=== PATIENT | female | born 1980 | race Caucasian/White ===

== ENCOUNTER 2020-07-23 12:29 | Outpatient (REF) | payer OTHER, SELFPAY ==
[2020-07-23 13:26] LABS: HCT 30.9 % (36.0-46.0); MCH 20.7 pg (27.0-33.0); MCHC 29.1 % (32.0-36.0); MPV 8.7 fL (8.0-11.0); Platelet Count 483 10^3/uL (130-400); RBC 4.35 10^6/uL (3.93-5.22); RDW 16.9 % (11.7-14.6); RDW-SD 42.8 fL
[2020-07-23 13:51] LABS: BUN 9 mg/dL (7-18); CREATININE 0.8 mg/dL (0.55-1.02); Calcium 8.8 mg/dL (8.5-10.1); Chloride 106 mmol/L (98-107); Ferritin 3 ng/mL (8-252); Glucose 85 mg/dL (74-106); Potassium 4.7 mmol/L (3.5-5.1); Sodium 142 mmol/L (136-145); TSH (W/Ref FT4) 1.11 uIU/mL (0.36-3.74)
== END 2020-07-23 12:30 | disposition home or self-care (01) ==
LOC: NCHCN 12:29
PROVIDERS: PCP Family Medicine; Visit Provider Family Medicine
DX: D50.9 Iron deficiency anemia, unspecified (principal); F41.8 Other specified anxiety disorders; M79.7 Fibromyalgia
CPT/HCPCS: 80048; 85027; 82728; 84443

== ENCOUNTER 2020-08-16 04:28 | Outpatient (RCR) | payer OTHER, SELFPAY ==
[2020-08-05] MEDS: IRON SUCROSE COMPLEX 200 MG in Normal Saline 100 ML 440 MG IVPB (12:52)
[2020-08-05] MEDS: Normal Saline Flush 10 ML SYR IVP (12:53)
[2020-08-09] MEDS: Normal Saline Flush 10 ML SYR IVP (13:23)
[2020-08-09] MEDS: IRON SUCROSE COMPLEX 200 MG in Normal Saline 100 ML 440 MG IVPB (13:23)
[2020-08-12] MEDS: Normal Saline Flush 10 ML SYR IVP (13:05)
[2020-08-12] MEDS: IRON SUCROSE COMPLEX 200 MG in Normal Saline 100 ML 440 MG IVPB (13:05)
[2020-08-16] MEDS: Normal Saline Flush 10 ML SYR IVP (13:05)
[2020-08-16] MEDS: IRON SUCROSE COMPLEX 200 MG in Normal Saline 100 ML 440 MG IVPB (13:05)
== END 2020-08-23 23:59 | disposition home or self-care (01) ==
LOC: INF 04:28
PROVIDERS: PCP Family Medicine; Visit Provider Nurse Practitioner Acute Care
DX: D50.9 Iron deficiency anemia, unspecified (principal)
CPT/HCPCS: 96365; J1756

== ENCOUNTER 2020-08-26 15:11 | Outpatient (REF) | payer OTHER, SELFPAY ==
[2020-08-26 13:47] LABS: HCT 37.9 % (36.0-46.0); MCH 22.9 pg (27.0-33.0); MCV 78.8 fL (80-95); MPV 9.1 fL (8.0-11.0); Platelet Count 349 10^3/uL (130-400); RBC 4.81 10^6/uL (3.93-5.22); RDW 27.1 % (11.7-14.6); RDW-SD 72.4 fL; WBC 6.69 10^3/uL (4.4-10.8)
[2020-08-26 14:33] LABS: Ferritin 36 ng/mL (8-252)
== END 2020-08-26 15:12 | disposition home or self-care (01) ==
LOC: NCHCN 15:11
PROVIDERS: PCP Family Medicine; Visit Provider Family Medicine
DX: D50.9 Iron deficiency anemia, unspecified (principal)
CPT/HCPCS: 85027; 82728

== ENCOUNTER 2020-12-17 17:57 | Outpatient (REF) | payer OTHER, SELFPAY ==
[2020-12-17 20:49] LABS: HCT 35.9 % (36.0-46.0); HGB 10.7 g/dL (11.2-15.7); MCH 24.7 pg (27.0-33.0); MCHC 29.8 % (32.0-36.0); MCV 82.9 fL (80-95); MPV 9.1 fL (8.0-11.0); Platelet Count 380 10^3/uL (130-400); RBC 4.33 10^6/uL (3.93-5.22); RDW 17.1 % (11.7-14.6); RDW-SD 51.1 fL; WBC 7.79 10^3/uL (4.4-10.8)
[2020-12-17 20:55] LABS: Ferritin 5 ng/mL (8-252)
== END 2020-12-17 17:58 | disposition home or self-care (01) ==
LOC: NCHCN 17:57
PROVIDERS: PCP Family Medicine; Visit Provider Family Medicine
DX: D50.9 Iron deficiency anemia, unspecified (principal)
CPT/HCPCS: 85027; 82728

== ENCOUNTER 2021-01-13 03:19 | Outpatient (RCR) | payer OTHER, SELFPAY ==
[2021-01-01] MEDS: Normal Saline Flush 10 ML SYR IVP (11:00)
[2021-01-01] MEDS: IRON SUCROSE COMPLEX 200 MG in Normal Saline 100 ML 440 MG IVPB (11:02)
[2021-01-03] MEDS: IRON SUCROSE COMPLEX 200 MG in Normal Saline 100 ML 440 MG IVPB (09:08)
[2021-01-03] MEDS: Normal Saline Flush 10 ML SYR IVP (10:10)
[2021-01-06] MEDS: IRON SUCROSE COMPLEX 200 MG in Normal Saline 100 ML 440 MG IVPB (13:06)
[2021-01-06] MEDS: Normal Saline Flush 10 ML SYR IVP (13:35)
[2021-01-08] MEDS: Normal Saline Flush 10 ML SYR IVP (13:01)
[2021-01-08] MEDS: IRON SUCROSE COMPLEX 200 MG in Normal Saline 100 ML 440 MG IVPB (13:09)
[2021-01-13] MEDS: Normal Saline Flush 10 ML SYR IVP (09:00)
[2021-01-13] MEDS: IRON SUCROSE COMPLEX 200 MG in Normal Saline 100 ML 440 MG IVPB (09:18)
== END 2021-01-23 23:59 | disposition home or self-care (01) ==
LOC: INF 03:19
PROVIDERS: PCP Family Medicine; Visit Provider Family Medicine
DX: D50.9 Iron deficiency anemia, unspecified (principal)
CPT/HCPCS: 36591; 96365; J1756

== ENCOUNTER 2021-01-20 15:04 | Outpatient (REF) | payer OTHER, SELFPAY ==
--- NOTE | 2021-01-20 09:45 | PAPFT_PTH ---
PATIENT: Michelle Wilcox LOC: [facility] U#:[id number] AGE/SX: 40/F ROOM: RE01/20/[address]: Trevor Corley : 1980 BED: DIS: 01/20/2021 SPEC #: [id number] RECD: 01/21/21 12:50 STATUS: KATIE RESohan #: [id number] KELSI: 01/20/21 09:[address]: Trevor Corley DEPT: [facility] Cytology RECD BY: Qiana Brown Tissues: 1 - CX/ENDOCX FOR PAP SMEARS Procedures: PAP THIN PREP/UVM Screening HPV DNA PROBE Comments: [id number]
[2021-01-20 14:54] LABS: HCT 39.7 % (36.0-46.0); HGB 12.3 g/dL (11.2-15.7); MCH 26.6 pg (27.0-33.0); MCV 85.9 fL (80-95); MPV 9.2 fL (8.0-11.0); Platelet Count 345 10^3/uL (130-400); RBC 4.62 10^6/uL (3.93-5.22); RDW 23.2 % (11.7-14.6); RDW-SD 70.6 fL; WBC 5.92 10^3/uL (4.4-10.8)
[2021-01-20 15:35] LABS: Ferritin 93 ng/mL (8-252)
== END 2021-01-20 15:05 | disposition home or self-care (01) ==
LOC: NCHCN 15:04
PROVIDERS: PCP Family Medicine; Visit Provider Family Medicine
DX: D50.9 Iron deficiency anemia, unspecified (principal); Z12.4 Encounter for screening for malignant neoplasm of cervix; Z11.51 Encounter for screening for human papillomavirus (HPV); R87.613 High grade squamous intraepithelial lesion on cytologic smear of cervix (HGSIL); B97.7 Papillomavirus as the cause of diseases classified elsewhere
CPT/HCPCS: 85027; 88142; 82728; 87624

== ENCOUNTER → 2021-02-10 01:37 | Outpatient (CLI) | payer OTHER, SELFPAY ==
--- NOTE | 2021-02-10 | DI.RAD_ITS ---
Exam(s) XR CHEST 2V PA LATERAL EXAM: XR CHEST 2V PA LATERAL CLINICAL HISTORY: COUGH, R05. TECHNIQUE: 2D digital imaging was performed. COMPARISON: No exams were available for comparison FINDINGS: Heart size is normal. The mediastinum is not widened. Lungs are clear. No infiltrates nor pleural effusions. Air is seen in a small bowel loop in the left upper quadrant subjacent to the left hemidiaphragm IMPRESSION: No acute pulmonary findings. DATA REPOSITORY: RADIATION DOSE DELIVERED:
== END ==
PROVIDERS: PCP Family Medicine; Visit Provider Nurse Practitioner Family
DX: R05.8 Other specified cough (principal)
CPT/HCPCS: 71046

== ENCOUNTER 2021-02-13 14:41 | Outpatient (REF) | payer OTHER, SELFPAY ==
--- NOTE | 2021-02-13 11:40 | CER_PTH ---
PATIENT: Michelle Wilcox LOC: [facility] U#:[id number] AGE/SX: 40/F ROOM: RE02/13/[address]: Sanjuanita Das MD : 1980 BED: DIS: 02/13/2021 SPEC #: [id number] RECD: 02/13/21 17:32 STATUS: KATIE REQ #: [id number] KELSI: 02/13/21 11:[address]: Sanjuanita Das DEPT: Surgical Specimen RECD BY: Qiana Brown ENTERED: 02/13/21 17:33 SP TYPE: CER OTHR DR: Trevor Corley Tissues: 1 - CERVICAL BIOPSY Procedures: GROSS AND MICRO LEVEL 4 Comments: [id number]
== END 2021-02-13 14:42 | disposition home or self-care (01) ==
LOC: LBN 14:41
PROVIDERS: PCP Family Medicine; Visit Provider Obstetrics & Gynecology
DX: R87.613 High grade squamous intraepithelial lesion on cytologic smear of cervix (HGSIL) (principal); D06.7 Carcinoma in situ of other parts of cervix
CPT/HCPCS: 88305

== ENCOUNTER 2021-02-20 12:07 | Outpatient (REF) | payer OTHER, SELFPAY ==
--- NOTE | 2021-02-20 10:20 | CER_PTH ---
PATIENT: Michelle Wilcox LOC: [facility] U#:[id number] AGE/SX: 40/F ROOM: RE02/20/[address]: Sanjuanita Das MD : 1980 BED: DIS: 02/20/2021 SPEC #: [id number] RECD: 02/20/21 12:50 STATUS: KATIE REQ #: [id number] KELSI: 02/20/21 10:[address]: Sanjuanita Das DEPT: Surgical Specimen RECD BY: Qiana Brown ENTERED: 02/20/21 12:51 SP TYPE: CER OTHR DR: Trevor Corley Tissues: 1 - CERVICAL BIOPSY Procedures: GROSS AND MICRO LEVEL 5 Comments: [id number]
--- OUTSIDE RECORDS SUMMARY | 2021-02-20 12:11 | XMS_ITS | Continuity of Care Document ---
:1980 Author Organization [facility] Address [address] [place] [address] Care Team Providers Name Role Phone Willingham Primary Care Physician Encounter BVT Date(s): 11/15/19 - 11/15/19 [facility] [address] [place] [address] Encounter Diagnosis H/O gastric bypass (Discharge Diagnosis) - 11/15/19 Iron deficiency (Discharge Diagnosis) - 11/15/19 Discharge Disposition: Home Attending Physician: Peyton Willingham Allergies, Adverse Reactions, Alerts No Known Medication Allergies Assessment and Plan Future Scheduled TestsLaboratoryHemoglobin A1c DC 11/15/19TSH [place] 11/15/19 Vitamin B12 Level 1 11/15/19Comprehensive Metabolic Panel Standard 11/15/19Lipid Panel Standard 11/15/19CBC w/Diff Standard 11/15/19Ferritin Serum 11/15/19FEIBC 11/15/19Vitamin D, 25-Hydroxy 11/15/19Folate (Folic Acid), serum 11/15/19 Functional Status 11/15/19 COVID-19 Screening None Immunizations Given and Recorded Vaccine Date Status Refusal Reason rabies (RIG-HT) 12/06/14 Recorded rabies (RIG-HT) 11/21/14 Recorded rabies (RIG-HT) 11/14/14 Recorded Td 05/21/13 Recorded Td 09/06/98 Recorded MMR (measles/mumps/rubella) 09/13/98 Recorded Medications calcium carbonate + vitamin D 500 mg-400 units oral tablet 1 tab(s), Oral, BID, # 60 tab(s), 0 Refill(s) Start Date: 10/25/19 Status: OrderedDULoxetine 60 mg oral delayed release capsule 60 mg = 1 cap(s), Oral, Daily, (do not crush or chew), # 90 cap(s), 1 Refill(s), Pharmacy: [id number], 1 cap(s) Oral Daily,x90 day(s),Instr:(do not crush or chew) Start Date: 11/15/19 Stop Date: 05/13/20 Status: Orderedgabapentin 300 mg oral capsule 300 mg = 1 cap(s), Oral, TID, # 270 cap(s), 1 Refill(s), Pharmacy: [facility] #[id number], 1 cap(s) Oral TID,x90 day(s) Start Date: 11/15/19 Stop Date: 05/13/20 Status: OrderedMulti Vitamin+ 0 Refill(s) Start Date: 11/15/19 Status: Ordered Problem List Condition Effective Dates Status Health Status Informant Allergic rhinitis, Active unspecified(Confirmed)1 Anemia(Confirmed) Active Depression(Confirmed) Active Fibromyalgia(Confirmed) Active 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 -4[facility] of [facility] -5Dept of [employer] - [employer] Extracted Vital Signs Most recent to oldest [Reference Range]: 1 Temperature Temporal Artery [36.3-37.8 DegC] 36.7 DegC (11/15/19 3:21 PM) Peripheral Pulse Rate [60-100 bpm] 74 bpm (11/15/19 3:21 PM) Respiratory Rate [14-20 br/min] 16 br/min (11/15/19 3:21 PM) Blood Pressure [90-140/60-90 mmHg] 108/74 mmHg (11/15/19 3:21 PM) BP Site Right arm (11/15/19 3:21 PM) Pulse Site Pulse Oximetry (11/15/19 3:21 PM) SpO2 [92-100 %] 97 % (11/15/19 3:21 PM) Height 176.1 cm (11/15/19 3:21 PM) Height/Length Measured (inches) 69.3 in (11/15/19 3:21 PM) Weight 79.88 kg (11/15/19 3:21 PM) Weight Measured (lbs) 175.736 lb (11/15/19 3:21 PM) BSA Measured 1.98 m2 (11/15/19 3:21 PM) Body Mass Index 25.76 kg/m2 (11/15/19 3:21 PM) Social History Social History Type Response Smoking Status Smoker, current status unkno [email or web address] entered on: 10/24/19 Sex 1daily
--- OUTSIDE RECORDS SUMMARY | 2021-02-20 12:11 | XMS_ITS | Continuity of Care Document ---
:1980 Author Organization [facility] Address [address] [place] [address] Care Team Providers Name Role Phone Willingham Primary Care Physician Encounter BVT Date(s): 05/24/20 - 05/24/20 [facility] [address] [place] [address] Encounter Diagnosis Depression (Discharge Diagnosis) - 05/24/20 Fibromyalgia (Discharge Diagnosis) - 05/24/20 Anemia (Discharge Diagnosis) - 05/24/20 Discharge Disposition: Home Attending Physician: Peyton Willingham Allergies, Adverse Reactions, Alerts No Known Allergies Assessment and Plan Future Scheduled TestsLaboratoryHemoglobin A1c DC 11/15/19TSH [place] 11/15/19 Vitamin B12 Level 1 11/15/19Comprehensive Metabolic Panel Standard 11/15/19Lipid Panel Standard 11/15/19CBC w/Diff Standard 11/15/19Ferritin Serum 11/15/19FEIBC 11/15/19Vitamin D, 25-Hydroxy 11/15/19Folate (Folic Acid), serum 11/15/19 Functional Status 05/24/20 Recent Travel History No recent travel Family Member Travel History No recent travel COVID-19 Screening None Immunizations Given and Recorded [...] OrderedDULoxetine 60 mg oral delayed release capsule = 1 cap(s), Oral, Daily, DO NOT CRUSH OR CHEW, # 90 cap(s), 0 Refill(s), Pharmacy: [facility] #[id number], 1 cap(s) Oral Daily,Instr:DO NOT CRUSH OR CHEW Start Date: 05/24/20 Status: Orderedgabapentin 300 mg oral capsule 300 mg = 1 cap(s), Oral, TID, # 84 cap(s), 0 Refill(s), Pharmacy: [facility] #[id number], 1 cap(s) Oral TID Start Date: 04/24/20 Status: OrderedMulti Vitamin+ 0 Refill(s) Start Date: 11/15/19 Status: Ordered Problem List Condition Effective Dates Status Health Status Informant Allergic rhinitis, Active unspecified(Confirmed)1 Anemia(Confirmed) Active Depression(Confirmed) Active Fibromyalgia(Confirmed) Active 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 -4Dept of [facility] -5Dept of [facility] [employer] - [employer] Extracted Social History Social History Type Response Smoking Status Smoker, current status unkno wn1 entered on: 10/24/19 Sex 1daily
== END 2021-02-20 12:08 | disposition home or self-care (01) ==
LOC: LBN 12:07
PROVIDERS: PCP Family Medicine; Visit Provider Obstetrics & Gynecology
DX: N87.1 Moderate cervical dysplasia (principal); D06.9 Carcinoma in situ of cervix, unspecified
CPT/HCPCS: 88305; 88307

== ENCOUNTER 2021-05-20 14:54 | Outpatient (REF) | payer OTHER, SELFPAY ==
[2021-05-20 16:31] LABS: HGB 13.6 g/dL (11.2-15.7); MCH 30.4 pg (27.0-33.0); MCHC 31.6 % (32.0-36.0); MCV 96.2 fL (80-95); MPV 9.6 fL (8.0-11.0); Platelet Count 285 10^3/uL (130-400); RBC 4.47 10^6/uL (3.93-5.22); RDW 12.2 % (11.7-14.6); RDW-SD 43.6 fL; WBC 5.72 10^3/uL (4.4-10.8)
[2021-05-20 17:14] LABS: Ferritin 12 ng/mL (8-252)
== END 2021-05-20 14:55 | disposition home or self-care (01) ==
LOC: NCHCN 14:54
PROVIDERS: PCP Family Medicine; Visit Provider Family Medicine
DX: D50.9 Iron deficiency anemia, unspecified (principal)
CPT/HCPCS: 85027; 82728

== ENCOUNTER 2021-06-17 03:03 | Outpatient (RCR) | payer OTHER, SELFPAY ==
[2021-06-03] MEDS: Normal Saline Flush 10 ML SYR IVP (10:01)
[2021-06-03] MEDS: IRON SUCROSE COMPLEX 200 MG in Normal Saline 100 ML 440 MG IVPB (10:11)
[2021-06-10] MEDS: Normal Saline Flush 10 ML SYR IVP (09:57)
[2021-06-10] MEDS: IRON SUCROSE COMPLEX 200 MG in Normal Saline 100 ML 440 MG IVPB (10:08)
[2021-06-17] MEDS: Normal Saline Flush 10 ML SYR IVP (10:14)
[2021-06-17] MEDS: IRON SUCROSE COMPLEX 200 MG in Normal Saline 100 ML 440 MG IVPB (10:33)
== END 2021-06-23 23:59 | disposition home or self-care (01) ==
LOC: INF 03:03
PROVIDERS: PCP Family Medicine; Visit Provider Nurse Practitioner Acute Care
DX: D50.9 Iron deficiency anemia, unspecified (principal)
CPT/HCPCS: 96365; J1756

== ENCOUNTER 2021-09-24 19:25 | Outpatient (REF) | payer OTHER, SELFPAY ==
[2021-09-24 16:06] LABS: Ferritin 29 ng/mL (8-252)
== END 2021-09-24 19:26 | disposition home or self-care (01) ==
LOC: NCHCN 19:25
PROVIDERS: PCP Family Medicine; Visit Provider Family Medicine
DX: D50.9 Iron deficiency anemia, unspecified (principal)
CPT/HCPCS: 82728